=== PATIENT | female | born 1990 | race Caucasian/White ===

== ENCOUNTER 2022-04-25 19:33 | Inpatient (IN) ==
[2022-04-25] MEDS ORDERED: PENICILLIN G POTASSIUM 6 MU in DEXTROSE 5% 250 ML IV STA (19:40)
[2022-04-25] MEDS ORDERED: LIDOCAINE 1% LOCAL 20 ML VIAL INFIL PRN (19:40)
[2022-04-25] MEDS ORDERED: LACTATED RINGER'S 1,000 ML IV PRN (19:40)
[2022-04-25 20:08] LABS: Hematocrit (blood only) 39.2 % (37.0-47.0); Mean Corpuscular Hemoglobin 34.1 pg (25.0-34.0); Mean Corpuscular Hgb Conc 35.7 g/dL (32.0-36.0); Mean Corpuscular Volume 95.4 fL (80.0-100.0); Mean Platelet Volume 10.8 fL (9.4-12.4); Platelet Count 160 K/uL (130-400); RDW Standard Deviation 45.4 fL (36.4-46.3); Red Blood Count 4.11 M/uL (4.20-5.40)
--- NOTE | 2022-04-25 20:13 | History & Physical Report ---
Date of Service April 25, 2022 Assessment & Plan (1) Carrier of group B Streptococcus: Plan: Beckie is a 31-year-old currently at 39 weeks 0 days gestational age presents in labor. 1. Fetus: Cat 1 2. Labor: Active. Will augment PRN 3. GBS positive - PCN 4. Vitals: WNL (2) Supervision of normal intrauterine in primigravida: (3) Need for rhogam due to Rh negative mother: (4) Normal labor and delivery: History of Present Illness Primary Care Provider: Fernando Shepherd DO Beckie is a 31-year-old currently at 39 weeks 0 days gestational age presents in labor. Patient denies any leakage of fluid reporting good movement. complicated by: Hx eating disorder/body dysmorphia -declines weight, working w/ counselor FOB w/ karen danpietro Need for Rhogam due to RH Negative Mother Rhogam given 12/17/21 - AL Rhogam given 03/18/22 - AL ASCUS Pap/Neg HPV @ nob visit *Repeat pap in 1 year Flu vaccine given 01/06/22- MK GBS Positive *Treat in labor OB Labs: Blood Type O Negative 10/14/21 Antibody Screen POSITIVE A 03/18/22 Hemoglobin 13.7 g/dl (12.0-16.0) 04/01/22 Hematocrit 39.2 % (34.1-44.9) 04/01/22 Mean Corpuscular Volume 99.5 fL (80.0-100.0) 04/01/22 Platelet Count 140 K/uL (130-400) 04/01/22 Rubella IgG Antibody Immune (Immune) 10/14/21 Rapid Plasma Reagin Nonreactive (Nonreactive) 02/03/22 Hepatitis B Surface Antigen. NON-REACTIVE (NON-REACTIVE) 10/14/21 Hepatitis C Antibody (EIA) NON-REACTIVE (NON-REACTIVE) 10/14/21 HIV (1&2) Ag and Ab Confirmation NON-REACTIVE (NON-REACTIVE) 10/14/21 Glucose 1 Hour 50 gm Load 140 mg/dl (70-130) H 02/03/22 Maternal Serum Alpha Fetoprotein 50.6 ng/mL 11/12/21 OB Optional Labs: Chlamydia trachomatis RNA NOT DETECTED (NOT DETECTED) 10/14/21 Neisseria gonorrhoeae RNA NOT DETECTED (NOT DETECTED) 10/14/21 Thyroid Stimulating Hormone (TSH) 1.140 uIu/ml (0.300-4.500) 01/10/20 Alpha Fetoprotein Triple Screen SEE NOTE 11/12/21 Labs Reviewed: cfDNA low risk--smp msafp neg--smp cf/sma neg--smp passed 2 hr gtt at 28 weeks--akh gbs positive Allergies Allergy/AdvReac Type Severity Reaction Status Date / Time No Known Allergies Allergy Verified 04/25/22 19:42 Home Medications Medication Instructions Recorded Confirmed Type lactobacillus combination no.9 4 1 mmu cells PO 01/10/20 04/22/22 History billion cell capsule (Adult 50 Plus Probiotic) vits no.126-ferrous fum 1 tab PO DAILY #90 tabs 09/24/21 04/25/22 Rx 28 mg iron-folic acid 800 mcg tablet (Classic ) Patient History Medical History (Updated 04/25/22 @ 20:11 by Khadar Berg MD) Body dysmorphic disorder Surgical History H/O oral surgery Family History Grandmother (Maternal) Breast cancer Mother Myocardial infarction COPD (chronic obstructive pulmonary disease) Aunt Skin cancer Diabetes Uncle Skin cancer Diabetes Father COPD (chronic obstructive pulmonary disease) Denies family history of Ovarian cancer Prostate cancer Colorectal cancer Social History (Updated 10/01/21 @ 10:51 by Janice Israel) Smoking Status: Never smoker Second Hand Exposure: No; Hx Alcohol Use: No (Socially ) Hx Substance Use: No Preferred Language: Persian Communication Ability: Effective Visual Impairment: No Limitations Hearing Ability: Normal 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 Other Information That Helps Us Care for You: No Feels Safe at Home: Yes Safety Concerns: Feels Safe At This Time Childhood Exposure to Second-Hand Smoke: Yes Dental Care, Regularly: No Physical Activity Frequency: Daily Seatbelt Use: always Sunscreen Use: Yes Assistive Devices: None Physical Exam Genitourinary: Manual OB Exam: + cervical dilation 4 cm, + cervical effacement 90% and + station 0 OB Exam Monitor Tracing: + external FHT monitor used, + external uterine monitor used, + category I and + normal FHT variability Results & Data ([facility]) Vital Signs (Past 12 Hours) Vital Signs Pulse BP 04/25/22 19:45 81 128/82 Coding Level of Care Code None Diagnoses Carrier of group B Streptococcus Z22.330 Supervision of normal intrauterine in primigravida Z34.00 Need for rhogam due to Rh negative mother Z29.13 Normal labor and delivery O80
[2022-04-25] MEDS ORDERED: PENICILLIN G POTASSIUM 3 MU in DEXTROSE 5% 100 ML IV PRN (22:40)
[2022-04-26] MEDS: OXYTOCIN 30 UNITS/500 ML BAG IV PRN ×2 (02:25→03:17)
[2022-04-26] MEDS ORDERED: DIPHTHERIA/TETANUS/PERTUSSIS 0.5mL SYR/VIAL (Age 7+yrs) IM ONE (02:38)
[2022-04-26] MEDS ORDERED: HYDROCORTISONE ACETATE 25 MG SUPP PR PRN (02:38)
[2022-04-26] MEDS ORDERED: ACETAMINOPHEN 325 MG TAB PO PRN (02:38)
[2022-04-26] MEDS ORDERED: BENZOCAINE 20% AER SPR 82.5 GM CAN EXT PRN (02:38)
[2022-04-26] MEDS ORDERED: OXYTOCIN 30 UNITS/500 ML BAG IV PRN (02:38)
[2022-04-26] MEDS ORDERED: bisacodyL 10 MG SUPP PR PRN (02:38)
[2022-04-26] MEDS: IBUPROFEN 600 MG TAB PO PRN ×4 (05:20→20:43)
[2022-04-26] MEDS: PRENATAL VITAMIN 1 TAB PO SCH (09:07)
[2022-04-26] MEDS: FERROUS SULFATE 325 MG TAB PO SCH (09:07)
[2022-04-26] MEDS: DOCUSATE SODIUM 100 MG CAP PO SCH ×2 (09:07→21:54)
--- NOTE | 2022-04-26 16:39 | Delivery Summary ---
DATE OF SERVICE: 04/26/2022 PROCEDURE: Normal spontaneous vaginal delivery with right periurethral laceration repair. SURGEON: Khadar Berg MD. PREOPERATIVE DIAGNOSES: 1. Single intrauterine at 39 weeks 2 days gestational age. 2. Active labor. 3. Eating disorder affecting . 4. Rh negative. 5. GBS positive. POSTOPERATIVE DIAGNOSES: 1. Single intrauterine at 39 weeks 2 days gestational age. 2. Active labor. 3. Eating disorder affecting . 4. Rh negative. 5. GBS positive. 6. Status post delivery. ESTIMATED BLOOD LOSS: 400 mL DRAINS: Straight cath. COMPLICATIONS: None. FINDINGS: Viable male with weight of 8 pounds 7 ounces and Apgars of 9 and 9 at 1 and [address] respectively. DESCRIPTION OF PROCEDURE: The patient was progressed to 10 cm dilated, 100% effaced, positive 2 stat ion, pushed over intact perineum without anesthesia and delivered a viable male with weight a nd Apgars as noted above. Head of the delivered in MARGARET position, restituted right transverse . No nuchal cord was noted. Body and shoulders quickly followed. was noted to be vigorous soon after delivery and a minute and a half delayed cord clamping was initiated. Cord was then doubl e clamped and cut. remained on maternal abdomen. Cord blood was obtained. Attention was th en turned to delivery of the placenta, which was delivered intact, 3-vessel cord, gentle cord tractio n. On inspection of the vagina, perineum, and cervix, there was noted to be a small right-sided philomena urethral laceration, which was repaired with 3-0 Vicryl in continuous running stitch. Needle, sponge , and instrument counts were correct at the completion of the case with mother and stable in the immediate post-delivery period. Job ID: [id number]
[2022-04-27] MEDS: IBUPROFEN 600 MG TAB PO PRN ×4 (01:33→20:02)
--- NOTE | 2022-04-27 05:23 | Obstetrical Progress Note ---
Date of Service April 27, 2022 Assessment & Plan (1) care following vaginal delivery: (2) Carrier of group B Streptococcus: Plan - Overall, feeling well and eating well today - feeding going well without concern - Urinating and passing gas appropriately - Ambulating well in room - Pain controlled w/ Ibuprofen - Hgb 14 (04/25) - Vitals stable and wnl - Routine PP care progressing well - GBS + received PCN - Anticipate discharge @ 24-48 hours PP - Recommending f/u outpatient in 6 weeks Admission and Anticipated Discharge Date Admission Date: April 25, 2022 Supervising Physician Co-Signing Physician Notes Patient seen with resident and agree with the above findings and plan. Routine post care Subjective Patient is a 31F who is PPD #1 following delivery at 39 2/7. She reports feeling well overall this morning. - Ambulation - well throughout room - Voiding/Trent - independent voids, no dysuria or pressure - Gas/Stool - passing gas, no bowel movement - Diet - regular, no nausea or emesis - Lochia - diminishing, light amount - Infant Feeding Type - breast feeding - Pain Level - 5/10, controlled with Ibuprofen Review of Systems - Denies fever, chills, sweats - Denies shortness of breath, difficulty breathing, chest pain, palpitations, chest pressure. - Denies breast pain. - Denies dysuria. - Denies headache or changes in vision. Physical Exam Physical Exam: General: Alert, oriented. No acute distress. Cardiac: RRR, normal S1/S2, no murmurs/rubs/gallops. Respiratory: Non-labored, CTAB, no wheezes/rales/rhonchi. Symmetric chest rise. Abdomen: Soft, nontender, nondistended. Bowel sounds present. Uterus: Uterine fundus firm, palpable 2 cm below umbilicus. Lower Extremities: No lower extremity edema or swelling. No deep calf pain. Ashleigh's negative bilaterally. Results & Data ([facility]) Vital Signs (Past 12 Hours) Vital Signs Temp Pulse Resp BP Pulse Ox O2 Del Method 04/26/22 22:40 36.8 C 78 18 109/69 95 Room Air 04/26/22 20:22 36.7 C 80 20 119/73 98 Room Air Resident Activity Tracking Resident Involvement: Resident Care Provided Care Provided: Adult [facility]
[2022-04-27 06:36] LABS: Hematocrit (blood only) 30.9 % (37.0-47.0); Hemoglobin 10.8 g/dl (12.0-16.0)
[2022-04-27] MEDS: DOCUSATE SODIUM 100 MG CAP PO SCH ×2 (08:02→20:00)
[2022-04-27] MEDS: FERROUS SULFATE 325 MG TAB PO SCH (08:04)
[2022-04-27] MEDS: PRENATAL VITAMIN 1 TAB PO SCH (08:04)
[2022-04-27] MEDS ORDERED: bisacodyL 5 MG TABEC PO SCH (20:00)
== END 2022-04-27 22:22 | disposition home or self-care (01) | DRG 807 ==
LOC: OPB 19:33 → 4S1 19:34 → 4E2 04-26 05:10